=== PATIENT | female | born 1995 | race Caucasian/White ===

== ENCOUNTER 2023-04-14 06:00 | Emergency (ER) | payer SELFPAY ==
[2023-04-14] VITALS (19 sets, daily range): BP systolic 96–128; BP diastolic 62–83; PULSE 56–79; RESP 16; TEMP 36.1; O2SAT 92–100
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
[2023-04-14] MEDS: fentaNYL 100 MCG/2 ML inj 50 MCG IVP (06:49)
[2023-04-14] MEDS: 0.9 % SODIUM CHLORIDE 1000 ml 1,000 ML IV (06:50)
[2023-04-14] MEDS: IPRAT-ALBUT 0.5-2.5 MG/3 ML NEB 1 NEB IH (07:05)
--- NOTE | 2023-04-14 07:27 | ED.NURSE ---
Pt to radiology
--- NOTE | 2023-04-14 07:45 | ED.NURSE ---
Back from imaging. Secondary assessment completed. Continues to c/o chest pain, states her fentanyl may be wearing off, Dr Leon updated. Removed pants. Bruising noted to knees bilaterally. Bruise on the outer left thigh. Abrasions to left ankle and top of foot. Small abrasion to top of right foot. Pt resting on cart. Fluids infusing. Call light within reach.
--- NOTE | 2023-04-14 07:59 | ED.NURSE ---
Report received from SORAYA Monroy.
[2023-04-14] MEDS: HYDROCODONE-ACETAMIN 5-325 MG 1 TAB 2 TAB PO (08:50)
[2023-04-14] MEDS: IBUPROFEN 400 MG TABLET 800 MG PO (08:50)
--- NOTE | 2023-04-14 09:00 | ED.NURSE ---
Pt leaves ambulatory, tolerates well. Christian wrap provided. Declines ice pack. Necklace, metal ring, bra and paperwork placed in belongings bag and given to Pt.
== END 2023-04-14 09:00 | disposition home or self-care (01) ==
PROVIDERS: Emergency Provider Family Medicine
DX: R07.89 Other chest pain (principal); S91.319A Laceration without foreign body, unspecified foot, initial encounter; S80.212A Abrasion, left knee, initial encounter; S80.01XA Contusion of right knee, initial encounter; V49.9XXA Car occupant (driver) (passenger) injured in unspecified traffic accident, initial encounter
CPT/HCPCS: 71260; 74177; 81001; 94640; 96361; 96374; 99284; 99291; A9270; J3010; J7030; Q9967